=== PATIENT | female | born 1935 | race Caucasian/White ===

== ENCOUNTER 2023-03-28 21:05 | Emergency (ER) | payer MEDICARE ==
[~2023-03-28] VITALS: Ht 160 cm; Wt 70.0 kg
[~2023-03-28 21:05] MED LIST: BAYER ASPIRIN E81 MG PO; DOXYCYCL HYC100 MG PO; LIPITOR10 MG PO; TAMOXIFEN CITRA10 MG PO
[2023-03-28 21:20] VITALS: BP 189/84
[2023-03-28] MEDS ORDERED: HYDROCHLOROT12.5 M1 PO (21:32)
[2023-03-28] MEDS ORDERED: LISINOPRIL20 M1 PO (21:32)
[2023-03-28] MEDS ORDERED: VITAMIN D-32000 UNI1 PO (21:34)
[2023-03-28] MEDS ORDERED: FISH OIL1000 M1 PO (21:34)
[2023-03-28 21:40] VITALS: BP 161/76
[2023-03-28 22:00] VITALS: BP 185/81
[2023-03-28 22:03] LABS: BASO% 0.5 % (0-3); HEMATOCRIT 40.8 % (37.0-47.0); HEMOGLOBIN 13.5 g/dl (12.0-16.0); LYMPH% 35.8 % (15-41); MEAN CELL VOLUME 97.4 fL CALC (80.0-100.0); MEAN CORPUSCULAR HGB 32.2 pG CALC (26.0-32.0); MEAN CORPUSCULAR HGB CONC 33.1 g/dL CAL (32.0-36.0); MONO% 12.1 % (2-13); NEUT# 3.04 thou/uL (2.00-7.15); NEUT% 49.6 % (42-76); RED BLOOD COUNT 4.19 mill/uL (4.20-5.60); RED CELL DISTRI WIDTH 14.3 % (11.5-15.5)
[2023-03-28] MEDS ORDERED: IPRATROPIUM-Albuterol 0.5MG-2.5MG/3 ML NEB ONE (22:10)
[2023-03-28] MEDS ORDERED: methylPREDNISolone SODIUM SUCC 125 MG/2 ML SDV IV ONE (22:10)
[2023-03-28 22:20] VITALS: BP 128/64
[2023-03-28 22:32] LABS: ALBUMIN 4.5 g/dL (3.2-5.0); ALKALINE PHOSPHATASE 85 u/l (38-126); ANION GAP 14 (6-22 (CALC)); BILIRUBIN, TOTAL 0.8 mg/dL (0.02-1.3); BUN 21 mg/dL (8-23); BUN/CREATININE RATIO 18 (12-20 (CALC)); CARBON DIOXIDE 27 mmol/l (22-30); CHLORIDE 103 mmol/l (95-108); CREATININE 1.2 mg/dL (0.5-1.0); GFR FOR AFR.AMER. 51 ML/MIN (>=60 (CALC)); GFR OTHER RACES 42 ML/MIN (>=60 (CALC)); POTASSIUM 4.2 mmol/l (3.5-5.1); SGOT/AST 34 u/l (9-36); SODIUM 140 mmol/l (137-146); TOTAL PROTEIN 7.3 g/dL (6.3-8.2)
[2023-03-29] VITALS: BP 135/60
[2023-03-29] MEDS ORDERED: ALBUTEROL108 MCG/AC IN (01:05)
[2023-03-29] MEDS ORDERED: EPIPEN 2-P0.3 MG/0.3 IM (01:05)
[2023-03-29] MEDS ORDERED: MEDDOSEPAK PO (01:20)
== END 2023-03-29 01:30 | disposition home or self-care (01) ==
LOC: ED 21:05
PROVIDERS: Family Medicine
DX: R06.2 Wheezing (principal); R06.02 Shortness of breath; I10 Essential (primary) hypertension; E78.5 Hyperlipidemia, unspecified; Z87.891 Personal history of nicotine dependence; Z20.822 Contact with and (suspected) exposure to COVID-19